=== PATIENT | male | born 1990 | race African-American/Black ===

== ENCOUNTER 2018-12-14 08:26 | Inpatient (IN) | payer MEDICAID ==
[~2018-12-14] VITALS: Ht 185.4 cm; Wt 140.6 kg
[2018-12-14] MEDS ORDERED: LORAZEPAM 2MG/ML CPJ IM ONE (08:45)
[2018-12-14] MEDS ORDERED: HALOPERIDOL LACTATE 5MG/ML VIAL IM ONE (08:45)
[2018-12-14 09:06] LABS: BASOPHILS % 0.6 % (0.0-2.0); HEMATOCRIT. 50.1 % (42.0-52.0); HEMOGLOBIN. 16.8 g/dL (14.0-18.0); LYMPHOCYTES % 8.4 % (20.0-50.0); MEAN CORPUSCULAR HEMOGLOBIN 28.4 pg (28.0-32.0); MEAN CORPUSCULAR VOLUME 84.5 fL (80.0-94.0); MEAN PLATELET VOLUME 10.5 fl (7.4-10.4); MONOCYTES % 5.5 % (2.0-8.0); NEUTROPHILS % 85.5 % (40.0-76.0); PLATELET 289 x1000/uL (130-400); RED BLOOD CELL COUNT 5.93 mill/uL (4.7-6.1)
[2018-12-14 09:12] LABS: CHLORIDE 100 mEq/L (98-107)
[2018-12-14 09:16] LABS: ETHANOL BLOOD < 10 mg/dL
[2018-12-14] MEDS ORDERED: SODIUM CHLORIDE 0.9% 1,000 ML IV ONE ×2 (13:45)
[2018-12-14 13:47] LABS: *AMPHETAMINES SCREEN URINE PRESUMTIVE POSITIVE (NEGATIVE); *BARBITURATES SCREEN URINE NEGATIVE (NEGATIVE); *BENZODIAZEPINES SCREEN URINE PRESUMTIVE POSITIVE (NEGATIVE); *COCAINE SCREEN URINE NEGATIVE (NEGATIVE)
[2018-12-14 13:48] LABS: CANNABINOID URINE SCREEN PRESUMTIVE POSITIVE (NEGATIVE); METHADONE URINE SCREEN NEGATIVE (NEGATIVE); OPIATES URINE SCREEN NEGATIVE (NEGATIVE); PHENCYCLIDINE URINE SCREEN NEGATIVE (NEGATIVE)
[2018-12-14] MEDS ORDERED: POTASSIUM CHLORIDE 20MEQ TABLET SR PO ONE (14:00)
[2018-12-14] MEDS ORDERED: CLONIDINE 0.1MG TABLET PO PRN (14:15)
[2018-12-14] MEDS ORDERED: LORAZEPAM 2MG/ML CPJ IV PRN (14:15)
[2018-12-14] MEDS ORDERED: HALOPERIDOL LACTATE 5MG/ML VIAL IM PRN (14:15)
[2018-12-14] MEDS ORDERED: ONDANSETRON HCL 4MG/2ML INJ IV PRN (14:15)
[2018-12-14] MEDS ORDERED: GUAIFENESIN 200MG/10ML SUGAR FREE UDC PO PRN (14:15)
[2018-12-14] MEDS ORDERED: IPRATROPIUM/ALBUTEROL 0.5-3(2.5)MG/3ML NEB INH PRN (14:15)
[2018-12-14] MEDS ORDERED: ZOLPIDEM TARTRATE 5MG TABLET PO PRN (14:15)
[2018-12-14] MEDS ORDERED: NITROGLYCERIN 0.4MG TABLET SL SL PRN (14:15)
[2018-12-14] MEDS ORDERED: KETOROLAC 15MG/ML VIAL IV PRN (14:15)
[2018-12-14] MEDS ORDERED: MAGNESIUM/ALUMINUM HYDROXIDE/SIMETHICONE 30ML UDC PO PRN (14:15)
[2018-12-14] MEDS ORDERED: DOCUSATE SODIUM 100MG CAPSULE PO PRN (14:15)
[2018-12-14] MEDS ORDERED: ACETAMINOPHEN 325MG TABLET PO PRN (14:15)
[2018-12-14 14:52] LABS: CREATINE KINASE 3194 IU/L (39-308)
[2018-12-14] MEDS: DILTIAZEM HCL 60MG TABLET PO SCH ×2 (17:54→23:56)
[2018-12-14] MEDS: SODIUM BICARBONATE 100 MEQ in SODIUM CHLORIDE 0.45% 1,000 ML IV SCH (18:01)
[2018-12-14] MEDS ORDERED: BUPR75TA8 MT (18:33)
[2018-12-14] MEDS ORDERED: LURA20TA MT (18:33)
[2018-12-14] MEDS ORDERED: TRAZ-212 MT (18:34)
[2018-12-14] MEDS ORDERED: DIPH-514 MT (18:34)
[2018-12-14 18:45] VITALS: BP 134/95
[2018-12-14 20:00] VITALS: BP 120/73
[2018-12-14] MEDS: FAMOTIDINE 20MG TABLET PO SCH (20:40)
[2018-12-15] VITALS: BP 133/78
[2018-12-15] MEDS: SODIUM BICARBONATE 100 MEQ in SODIUM CHLORIDE 0.45% 1,000 ML IV SCH ×2 (03:44→11:39)
[2018-12-15 04:00] VITALS: BP 125/73
[2018-12-15] MEDS: DILTIAZEM HCL 60MG TABLET PO SCH ×2 (05:31→11:35)
[2018-12-15 06:36] LABS: BASOPHILS % 0.6 % (0.0-2.0); EOSINOPHILS % 3.4 % (0.0-5.0); HEMATOCRIT. 41.9 % (42.0-52.0); HEMOGLOBIN. 14.3 g/dL (14.0-18.0); LYMPHOCYTES % 20.7 % (20.0-50.0); MEAN CORPUSCULAR HEMOGLOBIN 29.1 pg (28.0-32.0); MEAN CORPUSCULAR VOLUME 85.4 fL (80.0-94.0); MEAN PLATELET VOLUME 10.6 fl (7.4-10.4); MONOCYTES % 9.1 % (2.0-8.0); NEUTROPHILS % 66.2 % (40.0-76.0); PLATELET 211 x1000/uL (130-400); RED BLOOD CELL COUNT 4.91 mill/uL (4.7-6.1); RED CELL DISTRIBUTION WIDTH 13.8 % (11.6-14.6)
[2018-12-15 07:21] LABS: CHLORIDE 99 mEq/L (98-107)
[2018-12-15 08:00] VITALS: BP 120/71
[2018-12-15] MEDS ORDERED: POTASSIUM CHLORIDE 20MEQ/PACKET PO NR (10:00)
[2018-12-15] MEDS: FAMOTIDINE 20MG TABLET PO SCH (10:20)
[2018-12-15 10:53] LABS: CREATINE KINASE 1921 IU/L (39-308)
[2018-12-15] MEDS ORDERED: KCL 20MEQ/100ML PREMIX 100 ML IV NR (11:00)
[2018-12-15 12:00] VITALS: BP 128/88
[2018-12-15 12:06] VITALS: BP 120/71
== END 2018-12-15 14:31 | disposition home or self-care (01) | DRG 812 ==
LOC: ER 08:26 → 6EST 13:55 → ENRESERV 14:54 → 6EST 16:35
PROVIDERS: ADMIT Internal Medicine; ATTEND Internal Medicine
DX: T43.621A Poisoning by amphetamines, accidental (unintentional), initial encounter (principal); N17.0 Acute kidney failure with tubular necrosis; G92 Toxic encephalopathy; M62.82 Rhabdomyolysis; E87.6 Hypokalemia; J45.909 Unspecified asthma, uncomplicated; T50.995A Adverse effect of other drugs, medicaments and biological substances, initial encounter; Y92.89 Other specified places as the place of occurrence of the external cause
CPT/HCPCS: 36415; 80305; 80307; 80320; 80329; 82550; 83036; 96372; 99291; J1630; J1885; J2060; J3480; J3490; J7030; G0480

== ENCOUNTER 2022-06-16 11:00 | Emergency (ER) | payer MEDICAID, OTHER ==
[~2022-06-16] VITALS: Ht 185.4 cm; Wt 156.0 kg
[~2022-06-16 11:00] MED LIST: BUPR75TA8 MT; DIPH-514 MT; LURA20TA MT; TRAZ-251 MT
[2022-06-16 11:34] VITALS: BP 175/104
[2022-06-16 17:12] LABS: CLARITY URINE CLEAR (CLEAR); COLOR URINE YELLOW (YELLOW); KETONES URINE NEGATIVE (NEGATIVE); LEUKOCYTE ESTERASE URINE NEGATIVE (NEGATIVE); NITRITE URINE NEGATIVE (NEGATIVE); OCCULT BLOOD URINE NEGATIVE (NEGATIVE); PROTEIN URINE NEGATIVE (NEGATIVE); SPECIFIC GRAVITY URINE 1.022 (1.005-1.030); UROBILINOGEN URINE 0.2 E.U./dL (0.2-1.0)
[2022-06-16 17:41] LABS: HEMATOCRIT. 46.4 % (42.0-52.0); HEMOGLOBIN. 15.6 g/dL (14.0-18.0); MEAN CORPUSCULAR HEMOGLOBIN 28.9 pg (28.0-32.0); MEAN PLATELET VOLUME 10.3 fl (7.4-10.4); PLATELET 259 x1000/uL (130-400); RED BLOOD CELL COUNT 5.39 mill/uL (4.7-6.1); RED CELL DISTRIBUTION WIDTH 13.8 % (11.6-14.6)
[2022-06-16 17:47] LABS: CHLORIDE 104 mEq/L (98-107)
[2022-06-16] MEDS ORDERED: MAGNESIUM/ALUMINUM HYDROXIDE/SIMETHICONE 30ML UDC PO ONE (18:00)
[2022-06-16] MEDS ORDERED: FAMOTIDINE 20MG TABLET PO ONE (18:00)
[2022-06-16 18:13] LABS: PLATELET ESTIMATE NORMAL
[2022-06-16] MEDS ORDERED: OMEP40CA20 MT ×2 (18:27→18:41)
== END 2022-06-16 18:46 | disposition home or self-care (01) ==
LOC: ER 13:11
DX: R10.12 Left upper quadrant pain (principal); D72.829 Elevated white blood cell count, unspecified; J45.909 Unspecified asthma, uncomplicated
CPT/HCPCS: 36415; 80053; 81003; 85025; 99283